=== PATIENT | male | born 1945 | race Caucasian/White ===

== ENCOUNTER 2021-06-08 07:31 | Emergency (ER) | payer MEDICARE ==
[2021-06-08] MEDS ORDERED: SIMVASTATIN10 MG PO (07:51)
[2021-06-08] MEDS ORDERED: KEFLEX500 MG PO ×2 (09:19→12:41)
[2021-06-08 09:31] VITALS: BP 165/74
== END 2021-06-08 09:38 | disposition home or self-care (01) ==
LOC: ED 07:31
PROC: 0HQLXZZ Repair Left Lower Leg Skin, External Approach (ICD-10-PCS; principal; 2021-06-08)
DX: S91.012A Laceration without foreign body, left ankle, initial encounter (principal); E78.5 Hyperlipidemia, unspecified; W20.8XXA Other cause of strike by thrown, projected or falling object, initial encounter; Y92.009 Unspecified place in unspecified non-institutional (private) residence as the place of occurrence of the external cause

== ENCOUNTER 2023-07-03 03:59 | Emergency (ER) | payer MEDICARE ==
[~2023-07-03] VITALS: Ht 182.9 cm; Wt 85.0 kg
[~2023-07-03 03:59] MED LIST: KEFLEX500 MG PO; OMNI-PAC300 MG PO; SIMVASTATIN10 MG PO
[2023-07-03 04:12] VITALS: BP 145/67
[2023-07-03] MEDS ORDERED: SULFACET SOD10 % OS (04:37)
[2023-07-03 04:50] VITALS: BP 139/79
== END 2023-07-03 04:50 | disposition home or self-care (01) ==
LOC: ED 03:59
PROC: 08C1XZZ Extirpation of Matter from Left Eye, External Approach (ICD-10-PCS; principal; 2023-07-03)
DX: T15.82XA Foreign body in other and multiple parts of external eye, left eye, initial encounter (principal); E78.5 Hyperlipidemia, unspecified; X58.XXXA Exposure to other specified factors, initial encounter

== ENCOUNTER 2024-10-28 11:55 | Emergency (ER) | payer MEDICARE ==
[~2024-10-28] VITALS: Ht 182.9 cm; Wt 90.0 kg
[~2024-10-28 11:55] MED LIST changes: +SULFACET SOD10 % OS
[2024-10-28 13:43] VITALS: BP 163/68
== END 2024-10-28 13:44 | disposition home or self-care (01) ==
LOC: ED 11:55
PROC: 2W3QX1Z Immobilization of Right Lower Leg using Splint (ICD-10-PCS; principal; 2024-10-28)
DX: S82.51XA Displaced fracture of medial malleolus of right tibia, initial encounter for closed fracture (principal); M25.521 Pain in right elbow; E78.5 Hyperlipidemia, unspecified; W11.XXXA Fall on and from ladder, initial encounter

== ENCOUNTER 2024-11-15 16:42 | Emergency (ER) | payer MEDICARE ==
[2024-11-15] VITALS (12 sets, daily range): BP systolic 150–182; BP diastolic 65–87
[~2024-11-15] VITALS: Ht 182.9 cm; Wt 77.1 kg
[2024-11-15 17:21] LABS: BASO% 0.2 % (0-3); EOS% 0.2 % (0-8); HEMATOCRIT 40.4 % (39.0-50.0); HEMOGLOBIN 13.5 g/dl (14.0-18.0); IMMATURE GRANULOCYTES 0.2 % (0.0-5.0); LYMPH% 3.1 % (15-41); MEAN CORPUSCULAR HGB 30.4 pG CALC (26.0-32.0); MEAN CORPUSCULAR HGB CONC 33.4 g/dL CAL (32.0-36.0); MONO% 7.3 % (2-13); NEUT# 11.62 thou/uL (1.82-7.42); RED BLOOD COUNT 4.44 mill/uL (4.70-6.10); RED CELL DISTRI WIDTH 12.8 % (11.5-15.5); URINE BILIRUBIN - DIPSTICK Negative (NEGATIVE); URINE BLOOD DIPSTICK Small (NEGATIVE); URINE GLUCOSE - DIPSTICK 250 mg/dL (NEGATIVE); URINE KETONE Negative (NEGATIVE); URINE LEUK ESTERASE Negative (NEGATIVE); URINE NITRITE - DIPSTICK Negative (Negative); URINE PROTEIN - DIPSTICK Negative (NEG-TRACE); URINE SPECIFIC GRAVITY 1.015; URINE UROBILINOGEN - DIPSTICK 0.2 E.U./dL (0.2)
[2024-11-15 17:22] LABS: URINE COLOR Yellow
[2024-11-15 17:28] LABS: URINE WBC 0-2 WBC/hpf (0-5)
[2024-11-15 17:29] LABS: URINE MUCUS FEW hpf (NONE-FEW)
[2024-11-15 17:38] LABS: BILIRUBIN, TOTAL 0.7 mg/dL (0.2-1.3); CREATININE 1.3 mg/dL (0.7-1.3); POTASSIUM 4.7 mmol/l (3.5-5.1); TOTAL PROTEIN 6.5 g/dL (6.3-8.2)
[2024-11-15] MEDS ORDERED: MAGNESIUM CITRATE 296 ML/BTL PO ONE (18:50)
== END 2024-11-15 19:27 | disposition home or self-care (01) ==
LOC: ED 16:42
PROVIDERS: Family Medicine
PROC: 0T9B70Z Drainage of Bladder with Drainage Device, Via Natural or Artificial Opening (ICD-10-PCS; principal; 2024-11-15)
DX: R33.9 Retention of urine, unspecified (principal); K59.00 Constipation, unspecified; E78.5 Hyperlipidemia, unspecified; S82.891D Other fracture of right lower leg, subsequent encounter for closed fracture with routine healing; X58.XXXD Exposure to other specified factors, subsequent encounter
CPT/HCPCS: Q9967

== ENCOUNTER 2024-11-18 08:12 | Emergency (ER) | payer MEDICARE ==
[~2024-11-18] VITALS: Ht 182.9 cm; Wt 87.0 kg
[2024-11-18] VITALS (9 sets, daily range): BP systolic 139–189; BP diastolic 67–85
== END 2024-11-18 10:07 | disposition home or self-care (01) ==
LOC: ED 08:12
DX: Z46.6 Encounter for fitting and adjustment of urinary device (principal); N40.1 Benign prostatic hyperplasia with lower urinary tract symptoms; R33.8 Other retention of urine; C61 Malignant neoplasm of prostate; E78.5 Hyperlipidemia, unspecified

== ENCOUNTER 2024-11-25 07:43 | Emergency (ER) | payer MEDICARE ==
[~2024-11-25] VITALS: Ht 182.9 cm; Wt 86.1 kg
[2024-11-25 07:54] VITALS: BP 143/74
[2024-11-25 08:15] VITALS: BP 153/73
[2024-11-25 08:22] LABS: URINE BILIRUBIN - DIPSTICK Negative (NEGATIVE); URINE BLOOD DIPSTICK Large (NEGATIVE); URINE GLUCOSE - DIPSTICK 100 mg/dL (NEGATIVE); URINE KETONE Negative (NEGATIVE); URINE LEUK ESTERASE Trace (NEGATIVE); URINE NITRITE - DIPSTICK Negative (Negative); URINE PROTEIN - DIPSTICK 100 mg/dL (NEG-TRACE); URINE UROBILINOGEN - DIPSTICK 0.2 E.U./dL (0.2)
[2024-11-25 08:26] LABS: URINE COLOR Dark yellow
[2024-11-25 08:30] LABS: URINE RBC >100 RBC/hpf (0-5)
[2024-11-25 08:31] VITALS: BP 130/71
[2024-11-25 08:31] LABS: URINE BACTERIA FEW hpf; URINE MUCUS FEW hpf (NONE-FEW)
[2024-11-25] MEDS ORDERED: CIPROFLOXACN500 MG PO (08:44)
[2024-11-25 08:46] VITALS: BP 116/70
[2024-11-25 08:55] VITALS: BP 116/70
== END 2024-11-25 09:07 | disposition home or self-care (01) ==
LOC: ED 07:43
PROVIDERS: Family Medicine
DX: N30.01 Acute cystitis with hematuria (principal); Z79.82 Long term (current) use of aspirin; E78.5 Hyperlipidemia, unspecified